=== PATIENT | female | born 1940 | race Caucasian/White ===

== ENCOUNTER 2017-03-05 19:27 | Emergency (ER) | payer MEDICARE ==
[~2017-03-05] VITALS: Ht 154.9 cm; Wt 46.4 kg
[~2017-03-05 19:27] MED LIST: CALC-126 PO; LEVO25TA4 PO; LEVO500T33 PO; MULT-717 PO; OMEG1CAP23 PO; SIMV20TA3 PO; UBID100C11 PO; VITA1CAP PO; magnesium PO
[2017-03-05 20:13] LABS: BLOOD UREA NITROGEN 18 mg/dL (7-18)
[2017-03-05 20:18] LABS: IS PT STATUS REG ER OR PRE ER? YES
[2017-03-05] MEDS ORDERED: SODIUM CHLORIDE 0.9% 1,000ML IVBOLUS ONE (21:30)
[2017-03-05] MEDS ORDERED: OMNIPAQUE 350 MG/ML, 100ML BOTTLE ONE (21:59)
[2017-03-05 23:41] VITALS: BP 133/78
== END 2017-03-05 23:43 | disposition home or self-care (01) ==
LOC: ED 22:42
DX: E03.9 Hypothyroidism, unspecified (principal); R10.84 Generalized abdominal pain; K21.9 Gastro-esophageal reflux disease without esophagitis; E78.00 Pure hypercholesterolemia, unspecified; Z90.49 Acquired absence of other specified parts of digestive tract
CPT/HCPCS: 36415; 71020; 74160; 80048; 81003; 82040; 82150; 82247; 82248; 83690; 84075; 84439; 84443; 84450; 84460; 84484; 85025; 93005; 96360; 96361; 99285; J7030; Q9967

== ENCOUNTER 2018-07-07 01:08 | Observation (INO) | payer MEDICARE ==
[~2018-07-07] VITALS: Ht 154.9 cm; Wt 43.4 kg
[~2018-07-07 01:08] MED LIST changes: -LEVO500T33 PO; +LEVO500T47 PO; -UBID100C11 PO; +UBID100C41 PO
[2018-07-07 01:53] LABS: BASOPHILS # (AUTO) 0.03 x10^3/uL (0-0.1); BASOPHILS % (AUTO) 1 % (0-1); EOSINOPHILS # (AUTO) 0.04 x10^3/uL (0-0.4); EOSINOPHILS % (AUTO) 1 % (1-7); LYMPHOCYTES # (AUTO) 1.31 x10^3/uL (1-3.4); LYMPHOCYTES % (AUTO) 33 % (22-44); MD NO; MEAN CORPUSCULAR HGB CONC 33.7 g/dL (32.4-35.8); MEAN CORPUSCULAR VOLUME 92.1 fL (80-100); MEAN PLATELET VOLUME 7.3 fL (7.4-10.4); MONOCYTES % (AUTO) 10 % (2-9); NEUTROPHILS # (AUTO) 2.21 x10^3/uL (1.8-6.8); NEUTROPHILS % (AUTO) 55 % (42-75); PLATELET COUNT 279 x10^3/uL (130-400); RED BLOOD COUNT 4.17 x10^6/uL (3.82-5.3)
[2018-07-07 02:03] LABS: ALANINE AMINOTRANSFERASE 33 U/L (12-78); ALBUMIN 3.7 g/dL (3.4-5.0); ANION GAP 6 mmol/L (5-15); CALCIUM 9.2 mg/dL (8.5-10.1); CHLORIDE 107 mmol/L (98-107); CREATININE 0.89 mg/dL (0.55-1.02)
[2018-07-07 02:09] LABS: ALKALINE PHOSPHATASE 95 U/L (45-117); BILIRUBIN,TOTAL 0.5 mg/dL (0.2-1.0); TROPONIN I < 0.015 ng/mL (0.000-0.045)
[2018-07-07] MEDS ORDERED: HYDR25TA11 PO (03:28)
[2018-07-07] MEDS: SODIUM CHLORIDE 0.9% 1,000 ML IV SCH ×2 (05:07→15:00)
[2018-07-07 05:27] VITALS: BP 125/77
[2018-07-07] MEDS ORDERED: SODIUM CHLORIDE 0.9% 1,000 ML IV SCH (05:51)
[2018-07-07] MEDS ORDERED: ONDANSETRON ODT 4 MG PO PRN (06:00)
[2018-07-07] MEDS: HEPARIN 5,000 UNITS/ML, 1ML SQ SCH ×3 (06:00→14:00)
[2018-07-07] MEDS ORDERED: BISACODYL 10 MG SUPP PR PRN (06:00)
[2018-07-07] MEDS ORDERED: NITROGLYCERIN 0.4 MG BOTTLE (25 TABS) SL PRN (06:00)
[2018-07-07] MEDS ORDERED: ASPIRIN 325 MG TABLET EC PO SCH (06:00)
[2018-07-07] MEDS ORDERED: ONDANSETRON 2MG/ML, 2ML IVPush PRN (06:00)
[2018-07-07] MEDS ORDERED: LABETALOL 5MG/ML, 20ML IVPush PRN (06:00)
[2018-07-07] MEDS ORDERED: HYDROcodone/APAP 5/325 TABLET PO PRN (06:00)
[2018-07-07] MEDS ORDERED: IBUPROFEN 600 MG TABLET PO PRN (06:00)
[2018-07-07] MEDS ORDERED: hydrALAzine 20 MG/ML, 1ML IVPush PRN (06:00)
[2018-07-07] MEDS ORDERED: PROMETHAZINE 25 MG/ML, 1ML IM PRN (06:00)
[2018-07-07] MEDS ORDERED: DOCUSATE 100 MG CAPSULE PO PRN (06:00)
[2018-07-07] MEDS ORDERED: POLYETHYLENE GLYCOL 17 GM PACKET PO PRN (06:00)
[2018-07-07] MEDS ORDERED: morphine SULFATE 10 MG/ML, 1ML IVPush PRN (06:00)
[2018-07-07] MEDS ORDERED: LEVOTHYROXINE 25 MCG TABLET PO SCH (06:30)
[2018-07-07 07:06] LABS: FREE T4 (FREE THYROXINE) 1.11 ng/dL (0.76-1.46); TROPONIN I 0.293 ng/mL (0.000-0.045)
[2018-07-07 07:25] VITALS: BP 128/67
[2018-07-07 07:28] LABS: HEMOGLOBIN A1C 5.5 % (4.2-6.3)
[2018-07-07 07:30] LABS: CULTURE INDICATED? NO; MICROSCOPIC NOT IND
[2018-07-07] MEDS ORDERED: TEMPLATE NON-FORMULARY MED. (Ubidecarenone** (Co Q-10**) 100 MG) PO SCH (09:00)
[2018-07-07] MEDS ORDERED: MAGNESIUM OXIDE 400 MG TABLET PO SCH (09:00)
[2018-07-07] MEDS ORDERED: SIMVASTATIN 10 MG TABLET PO SCH ×2 (09:00→21:00)
[2018-07-07] MEDS ORDERED: MULTIVITS,STRESS FORMULA 1 TABLET PO SCH (09:00)
[2018-07-07] MEDS ORDERED: MULTIVITAMINS/MINERALS TABLET PO SCH (09:00)
[2018-07-07] MEDS ORDERED: CALCIUM/VITAMIN D3 250-125 TABLET PO SCH (09:00)
[2018-07-07] MEDS ORDERED: OMEGA-3/FISH OIL CAPSULE PO SCH (09:00)
[2018-07-07] MEDS ORDERED: SIMVASTATIN 5 MG TABLET ONE (09:01)
[2018-07-07 11:55] LABS: TROPONIN I 0.195 ng/mL (0.000-0.045)
[2018-07-07 12:38] VITALS: BP 128/65
== END 2018-07-07 19:08 | disposition home or self-care (01) ==
LOC: ED 03:15 → 5SO 03:40 → INTOOBSV 03:40 → 5SO 04:36
PROVIDERS: ADMIT Internal Medicine; ATTEND Internal Medicine
DX: R07.89 Other chest pain (principal); E03.9 Hypothyroidism, unspecified; E78.00 Pure hypercholesterolemia, unspecified; E78.5 Hyperlipidemia, unspecified; K21.9 Gastro-esophageal reflux disease without esophagitis; I10 Essential (primary) hypertension
CPT/HCPCS: 36415; 71045; 78452; 80053; 81003; 83036; 83735; 83880; 84439; 84443; 84484; 85025; 93005; 93017; 93306; 96372; 99284; A9502; C9898; G0378; J1644; J7030